=== PATIENT | male | born 2005 | race Hispanic/Latino ===

== ENCOUNTER 2025-01-24 16:57 | Emergency (ER) | payer SELFPAY ==
[2025-01-24] MEDS: methylPREDNISolone Acetate 80 MG/ML SDV IM ONE (17:35)
== END 2025-01-24 17:40 | disposition home or self-care (01) ==
LOC: CC.ED 16:57
DX: J06.9 Acute upper respiratory infection, unspecified (principal); B97.89 Other viral agents as the cause of diseases classified elsewhere; Z79.899 Other long term (current) drug therapy
CPT/HCPCS: 96372; 99283; J1010